=== PATIENT | female | born 1980 | race Caucasian/White ===

== ENCOUNTER 2023-11-09 08:03 | Outpatient (CLI) | payer BC, SELFPAY ==
--- NOTE | 2023-11-09 09:37 | W.ANESCHARGE ---
Anesthesia Charges Start Date/Time Anesthesia Start Date: 11/09/23 Anesthesia Start Time: 09:00 Stop Date/Time Anesthesia Stop Date: 11/09/23 Anesthesia Stop Time: 09:34
--- NOTE | 2023-11-09 11:17 | W.ANESCHARGE ---
Anesthesia Charges Start Date/Time Anesthesia Start Date: 11/09/23 Anesthesia Start Time: 09:00 Stop Date/Time Anesthesia Stop Date: 11/09/23 Anesthesia Stop Time: 09:34
== END 2023-11-09 08:04 | disposition home or self-care (01) ==
LOC: OP CLINIC 08:06
PROVIDERS: PCP Student in an Organized Health Care Education/Training Program; Visit Provider Surgery
DX: Z12.11 Encounter for screening for malignant neoplasm of colon (principal); K57.30 Diverticulosis of large intestine without perforation or abscess without bleeding; K63.89 Other specified diseases of intestine; Z83.719 Family history of colon polyps, unspecified; Z80.0 Family history of malignant neoplasm of digestive organs
CPT/HCPCS: 00811; 45380; 88305; J2704